=== PATIENT | male | born 2000 | race Caucasian/White ===

== ENCOUNTER 2020-08-13 13:59 | Emergency (ER) | payer OTHER, SELFPAY ==
[2020-08-13 14:18] VITALS: BP 106/48; PULSE 65; RESP 20; TEMP 37.3; O2SAT 98
--- NOTE | 2020-08-13 14:25 | ED.GENADULT ---
HPI - General Adult General Chief complaint: Upper Respiratory Infection Stated complaint: sore throat Source: patient Mode of arrival: ambulatory Limitations: no limitations History of Present Illness HPI narrative: Patient presents for evaluation of sore throat that started this morning. He is experiencing subjective fever but did not check his temperature. No chills, nausea, vomiting, otalgia or respiratory symptoms. Denies trismus and problems handling secretions. No recent sick contacts. He has not taken any medication for symptoms. Denies any underlying medical problems. No additional complaints or concerns. Related Data Allergies Allergy/AdvReac Type Severity Reaction Status Date / Time No Known Allergies Allergy Unverified 02/03/19 21:34 Review of Systems Review of Systems: Narrative: CONSTITUTIONAL: Denies chills, or sweats. Reports subjective fever EYES: Denies visual changes, redness, or discharge. ENT: Denies rhinorrhea, congestion, otalgia. Reports sore throat CARDIOVASCULAR: Denies chest pain, palpitations, or edema. RESPIRATORY: Denies cough or dyspnea. GASTROINTESTINAL: Denies abdominal pain, nausea, vomiting, or diarrhea. GENITOURINARY: Denies dysuria or hematuria. SKIN: Denies rash or itching. MUSCULOSKELETAL: Denies back pain, joint pain, or myalgia. NEUROLOGIC: Denies headache, numbness, dizziness, or weakness. PSYCHIATRIC: Denies anxiety or depression. [facility] Past Medical History Medical History (Updated 08/13/20 @ 14:30 by Ho Aragon, [employer], ) No pertinent past medical history Surgical History Surgical History No pertinent past surgical history Family History Family History Mother No pertinent past medical history Social History Social History Smoking status: Former smoker Tobacco type: e-cigarettes/vaping Alcohol intake: never Substance use: never Living arrangements: with family Additional living arrangements comments: Currently home from college Occupation/Education: student Gender identity (if verbalized by the patient): Male Exam Narrative: Exam Narrative: GENERAL: Well-appearing, well-nourished, and in no acute distress. HEAD: Normocephalic, atraumatic. EYES: PERRLA and EOMI. ENT: Nares clear, no rhinorrhea or epistaxis. Mucous membranes moist. Bilateral tonsillar swelling with white/green exudate. Uvula is midline. Bilateral TMs pearly singleton nonbulging NECK: Supple. No adenopathy or masses. No carotid bruits or JVD CHEST: Clear to auscultation. No respiratory distress. No wheezes rales or rhonchi HEART: Regular rate and rhythm. No murmur heard. Normal peripheral pulses. ABDOMEN: Soft, nontender, nondistended, normal active bowel sounds. EXTREMITIES: Normal range of motion. No edema. SKIN: Warm, dry, no rash. NEURO: No focal deficits. Alert and oriented x3. PSYCH: Normal mood and affect. Course Course Emergency Course: 20-year-old male presents with sore throat, symptom onset this morning. Exam is consistent with strep pharyngitis. He has no uvular deviation to suggest peritonsillar abscess. Rapid strep screen is negative. Will send sample for throat culture. Start penicillin. He has ibuprofen available at home. We will also send a prescription for Cepacol. Vital Signs Vital signs: Vital Signs Temperature 37.3 C 08/13/20 14:18 Pulse Rate 65 08/13/20 14:18 Respiratory Rate 20 08/13/20 14:18 Blood Pressure 106/48 L 08/13/20 14:18 Pulse Oximetry 98 08/13/20 14:18 Temperature 37.3 C 08/13/20 14:18 Pulse Rate 65 08/13/20 14:18 Respiratory Rate 20 08/13/20 14:18 Blood Pressure 106/48 L 08/13/20 14:18 Pulse Oximetry 98 08/13/20 14:18 Medical Decision Making Differential Diagnosis Differential Diagnosis: Strep pharyngitis
== END 2020-08-13 14:36 | disposition home or self-care (01) ==
PROVIDERS: Emergency Provider Nurse Practitioner; PCP Pediatrics
DX: J02.9 Acute pharyngitis, unspecified (principal); F17.200 Nicotine dependence, unspecified, uncomplicated
CPT/HCPCS: 87081; 87880; 99213; G0463